=== PATIENT | female | born 1980 | race Two or more races ===

== ENCOUNTER 2017-10-16 05:52 | Inpatient (IN) | payer OTHER ==
[~2017-10-16] VITALS: Ht 160 cm; Wt 81.4 kg
[2017-10-16] MEDS ORDERED: OXYTOCIN 30U/ 0.9% NaCL 500ML 500 ML IV SCH (05:53)
[2017-10-16] MEDS ORDERED: LACTATED RINGERS 1,000 ML IV SCH ×4 (05:53→08:36)
[2017-10-16] MEDS ORDERED: NEWBORN KIT ONE (05:54)
[2017-10-16] MEDS ORDERED: OXYTOCIN 30U/ 0.9% NaCL 500ML 500 ML ONE (05:54)
[2017-10-16] MEDS ORDERED: SODIUM CITRATE/CITRIC ACID 30 ML UDC ONE ×2 (05:54→07:32)
[2017-10-16] MEDS ORDERED: METOCLOPRAMIDE 5 MG/ML, 2ML ONE ×2 (05:54→07:32)
[2017-10-16] MEDS: PLEASE ENTER ALLERGIES MC SCH ×16 (06:00→13:00)
[2017-10-16] MEDS ORDERED: METOCLOPRAMIDE 5 MG/ML, 2ML IV ONE (06:00)
[2017-10-16] MEDS ORDERED: LACTATED RINGERS 1,000 ML IVBOLUS ONE (06:00)
[2017-10-16] MEDS ORDERED: SODIUM CITRATE/CITRIC ACID 30 ML UDC PO ONE (06:00)
[2017-10-16 06:14] LABS: HEMATOCRIT 39.5 % (34.6-47.8); HEMOGLOBIN 13.8 g/dL (11.7-16.4); WHITE BLOOD COUNT 9.7 x10^3/uL (3.4-10)
[2017-10-16] MEDS ORDERED: ONDANSETRON 2MG/ML, 2ML IVPush PRN (07:30)
[2017-10-16] MEDS ORDERED: EPHEDRINE 50 MG/ML, 1ML IVPush PRN (07:30)
[2017-10-16] MEDS ORDERED: FENTANYL PF 100 MCG/2ML IV PRN (07:30)
[2017-10-16] MEDS ORDERED: OXYcodone 5 MG/5 ML ORAL.SOL UDC PO PRN (07:30)
[2017-10-16] MEDS ORDERED: MEPERIDINE/PF 25MG/0.5ML IVPush PRN (07:30)
[2017-10-16] MEDS ORDERED: EPHEDRINE 50 MG/ML, 1ML ONE (07:32)
[2017-10-16] MEDS ORDERED: LIDOCAINE 1%, 20ML ONE (07:32)
[2017-10-16] MEDS ORDERED: CEFAZOLIN 1,000 MG ONE (07:32)
[2017-10-16] MEDS ORDERED: OXYTOCIN 10 UNITS/ML, 1ML ONE (07:32)
[2017-10-16] MEDS: OXYTOCIN 30U/ 0.9% NaCL 500ML 500 ML IV SCH ×2 (08:36→19:25)
[2017-10-16] MEDS: morphine SULFATE 10 MG/ML, 1ML IV PRN ×2 (08:57→09:20)
[2017-10-16] MEDS ORDERED: MISOPROSTOL 200 MCG TABLET PR PRN (09:00)
[2017-10-16] MEDS ORDERED: CARBOPROST TROMETHAMINE 250 MCG/ML, 1ML IM PRN (09:00)
[2017-10-16] MEDS ORDERED: BISACODYL 10 MG SUPP PR PRN (09:00)
[2017-10-16] MEDS ORDERED: CALCIUM CARBONATE 500 MG TAB.CHEW PO PRN (09:00)
[2017-10-16] MEDS ORDERED: ONDANSETRON 2MG/ML, 2ML IV PRN (09:00)
[2017-10-16] MEDS ORDERED: morphine SULFATE 10 MG/ML, 1ML IVPush PRN (09:00)
[2017-10-16] MEDS ORDERED: SIMETHICONE 80 MG CHEW TAB PO PRN (09:00)
[2017-10-16] MEDS ORDERED: ACETAMINOPHEN 325 MG TABLET PO PRN (09:00)
[2017-10-16] MEDS: PRENATAL VIT/IRON/FA 1 EACH TABLET PO SCH (09:00)
[2017-10-16] MEDS ORDERED: METHYLERGONOVINE 0.2 MG/ML IM PRN (09:00)
[2017-10-16] MEDS ORDERED: GLYCERIN ADULT SUPP PR PRN (09:00)
[2017-10-16 10:50] VITALS: BP 137/87
[2017-10-16] MEDS: OXYcodone/APAP 5/325MG TABLET PO PRN ×4 (11:12→22:27)
[2017-10-16] MEDS: IBUPROFEN 600 MG TABLET PO PRN ×2 (11:12→19:52)
[2017-10-16 14:45] VITALS: BP 124/71
[2017-10-16 19:16] LABS: HEMATOCRIT 35.9 % (34.6-47.8); HEMOGLOBIN 12.2 g/dL (11.7-16.4); WHITE BLOOD COUNT 9.1 x10^3/uL (3.4-10)
[2017-10-16 19:25] VITALS: BP 115/79
[2017-10-16 23:40] VITALS: BP 121/77
[2017-10-17] MEDS: IBUPROFEN 600 MG TABLET PO PRN ×4 (02:36→21:54)
[2017-10-17] MEDS: OXYcodone/APAP 5/325MG TABLET PO PRN ×2 (02:37→06:15)
[2017-10-17] MEDS: OXYTOCIN 30U/ 0.9% NaCL 500ML 500 ML IV SCH (04:36)
[2017-10-17 04:45] VITALS: BP 113/71
[2017-10-17 08:28] VITALS: BP 129/79
[2017-10-17] MEDS: PRENATAL VIT/IRON/FA 1 EACH TABLET PO SCH (09:00)
[2017-10-17] MEDS: DOCUSATE 100 MG CAPSULE PO PRN ×2 (09:13→21:54)
[2017-10-17] MEDS ORDERED: HYDROcodone/APAP 5/325 TABLET ONE (13:57)
[2017-10-17] MEDS: HYDROcodone/APAP 5/325 TABLET PO PRN ×3 (13:59→21:54)
[2017-10-17 22:00] VITALS: BP 123/83
[2017-10-18] MEDS: IBUPROFEN 600 MG TABLET PO PRN ×2 (04:17→10:11)
[2017-10-18] MEDS: HYDROcodone/APAP 5/325 TABLET PO PRN ×2 (04:17→10:11)
[2017-10-18 08:00] VITALS: BP 112/75
[2017-10-18] MEDS: DOCUSATE 100 MG CAPSULE PO PRN (10:11)
[2017-10-18] MEDS ORDERED: IBUP-1222 PO (10:15)
[2017-10-18] MEDS ORDERED: HYDR-3240 PO (10:16)
== END 2017-10-18 13:22 | disposition home or self-care (01) | DRG 766 ==
LOC: LDIP 05:52 → 2NW 11:01
PROVIDERS: ADMIT Obstetrics & Gynecology; ATTEND Obstetrics & Gynecology
PROC: 10D00Z1 Extraction of Products of Conception, Low, Open Approach (ICD-10-PCS; principal; 2017-10-16)
DX: O34.211 Maternal care for low transverse scar from previous cesarean delivery (principal); Z37.0 Single live birth; Z3A.39 39 weeks gestation of pregnancy
CPT/HCPCS: 36415; 85025; 86850; 86900; J0690; J2405; J3490; J2270; J2590; J2765; J7120

== ENCOUNTER 2020-01-02 10:29 | Emergency (ER) | payer OTHER ==
[~2020-01-02] VITALS: Ht 160 cm; Wt 66.0 kg
[~2020-01-02 10:29] MED LIST: HYDR-3240 PO; IBUP-1222 PO
--- NOTE | 2020-01-02 10:41 | NUR ---
PT REFUSES WHEELCHAIR
--- NOTE | 2020-01-02 10:55 | NUR ---
WAS AT A FEW DAYS AGO AND TESTED NEGATIVE FOR FLU. WAS GIVEN TAMIFLU. FEELS WORSE TODAY. BODY ACHES, NAUSEA, COUGH, FEVER. ALEKSANDAR PETERS, IS BEDSIDE.
[2020-01-02] MEDS ORDERED: SODIUM CHLORIDE 0.9% 1,000ML IVBOLUS ONE (11:00)
[2020-01-02] MEDS ORDERED: SODIUM CHLORIDE FLUSH 10ML SYR IVF ONE (11:00)
[2020-01-02 11:25] LABS: RAPID INFLUENZA A Negative (Negative); RAPID INFLUENZA B Negative (Negative)
[2020-01-02 11:41] LABS: MICROSCOPIC NOT IND
[2020-01-02 11:42] VITALS: BP 116/76
--- NOTE | 2020-01-02 11:42 | NUR ---
PT RESTING IN [facility]. BEDSIDE. IV FLUIDS INFUSING
[2020-01-02 11:44] LABS: CULTURE INDICATED? NO
[2020-01-02 11:57] LABS: MEAN CORPUSCULAR HEMOGLOBIN 30.8 pg (27.0-34.8); MEAN CORPUSCULAR HGB CONC 34.3 g/dL (32.4-35.8); MEAN CORPUSCULAR VOLUME 89.6 fL (80-100); MEAN PLATELET VOLUME 7.9 fL (7.4-10.4); PLATELET COUNT 275 x10^3/uL (130-400); RED BLOOD COUNT 4.33 x10^6/uL (3.82-5.3); RED CELL DISTRIBUTION WIDTH 13.5 % (9.6-15.2)
[2020-01-02 12:04] LABS: CHLORIDE 105 mmol/L (98-107)
[2020-01-02 12:11] LABS: ALANINE AMINOTRANSFERASE 13 U/L (12-78); ALBUMIN 2.8 g/dL (3.4-5.0); ALKALINE PHOSPHATASE 105 U/L (45-117); ANION GAP 7 mmol/L (5-15); BILIRUBIN,TOTAL 0.7 mg/dL (0.2-1.0); CALCIUM 8.4 mg/dL (8.5-10.1); CREATININE 0.64 mg/dL (0.55-1.02); TOTAL PROTEIN 7.1 g/dL (6.4-8.2)
[2020-01-02] MEDS ORDERED: ACETAMINOPHEN 500 MG TABLET PO PRN (12:30)
[2020-01-02] MEDS ORDERED: ACETAMINOPHEN 500 MG TABLET ONE (12:32)
[2020-01-02 12:37] LABS: MD YES
[2020-01-02 12:40] LABS: <PLATELET ESTIMATE> ADEQUATE; <PLT MORPHOLOGY> NORMAL PLT MORPH; <RBC MORPHOLOGY> NORMAL; BANDS%(MANUAL) 27 % (0-7); LYMPH#(MANUAL) 0.91 x10^3/uL (1-3.4); LYMPHS% (MANUAL) 6 % (22-44); SEG#(MANUAL) 10.18 x10^3/uL (1.8-6.8); SEGS% (MANUAL) 67 % (42-75)
[2020-01-02] MEDS ORDERED: POTASSIUM CHLORIDE 20 MEQ TAB.ER.PRT ONE (12:40)
[2020-01-02] MEDS ORDERED: POTASSIUM CHLORIDE 20 MEQ TAB.ER.PRT PO ONE (13:00)
== END 2020-01-02 13:11 ==
LOC: ED 12:30
DX: O98.511 Other viral diseases complicating pregnancy, first trimester (principal); B34.9 Viral infection, unspecified; Z3A.12 12 weeks gestation of pregnancy
CPT/HCPCS: 36415; 71046; 80053; 81003; 85025; 87400; 99284; J7030